=== PATIENT | female | born 1980 | race Caucasian/White ===

== ENCOUNTER 2017-12-22 14:22 | Outpatient (CLI) | payer OTHER, SELFPAY ==
[2017-12-22 15:11] VITALS: BMI 30.2
--- NOTE | 2017-12-22 15:24 | OB.TRI.NOTE ---
History of Present Illness Date of Service: 12/22/17 Was patient seen by the physician?: Yes Reason For Visit: SPOTTING Date of Service: 12/22/17 Final ADAM: 04/20/18 Gestational age: 23 Weeks and 0 Days History of Present Illness: 37yo @ 23wga with c/o bright red blood per vagina immediately following a bowel movement earlier today. She had placed a pad and had a quarter sized amount of blood on arrival. Denies cramping, abdominal or back pain, dysuria, urgency, hematuria, constipation, diarrhea. She reports minimal straining with bowel movement. She otherwise feels well. Previously had postcoital bleeding approximately 3 weeks ago. Relates last US on 12/05/17 was normal. Home Medications Medication Instructions Recorded Vitamins 1 tab PO DAILY 12/22/17 Progesterone 200 mg IM UD 12/22/17 Prometrium 200 mg PO BID 12/22/17 Allergies No Known Allergies Allergy (Verified 12/22/17 15:12) - Pertinent Past Medical History Pertinent Past Medical History: section x 1 2 prior - first trimester spontaneous abortions labs reviewed HBsAg neg RPR NR Rubella immune A NEG Physical Exam Vitals: vss General: Alert, Oriented x3, Cooperative, No apparent distress Abdomen: Soft, Non Tender, Non-Distended, Gravid, - - Uterus 23w size, SSE - cervix closed, scant red blood and small clot in vault; Extremities:: No edema Estimated gestational size: Appropriate for gestational size Presentation: Breech Cervix Dilation (cm): 0 Station: -3 Effacement (%): 0 NST - FHR Rate Baby A Baseline: 145 Variability:: Minimal Accelerations:: None Decelerations:: None NST Reactive:: Appropriate for gestational age Uterine Activity:: none Impression/Plan 37yo @ 23wga with second trimester spotting, FHR AGA -OSH records reviewed with pt and -Bedside US performed after initial exam TAUS: fetus breech, active, CITLALLI 10.1cm with posterior placenta and appears to have at least marginal previa; no retroplacental clot present. TVUS performed to r/o placenta previa: Cervix 42mm, no funneling with/without Valsalva, + partial placenta previa -Reviewed US and exam findings with patient and . Bleeding likely 2/2 Valsalva effect on partial previa. Reviewed dangers of previa and potential for resolution. I recommend keeping stool soft with hydration, stool softeners as needed; no heavy lifting > 10lb, no intercourse. Reviewed signs and symptoms requiring further evaluation and when to present to [facility]. Also discussed movement counts. -Will plan for repeat US at 28-32wga with growth scan at that time. -Patient and anxious to return home. I advised Rhogam given Rh negative status and known Rh positive. Patient agreeable to sending T&S today, will present to office on Sunday at 0830h for Rhogam. Patient is in agreement with plan and understands importance of receiving injection within 72 hours. Visit was approximately 20 minutes with > 50% of time spent in counseling and discussion not including ultrasound or record review. Code Visit Office Visits / Consults: [id number] OV L3 New Past Medical/Surgical History Allergies No Known Allergies Allergy (Verified 12/22/17 15:12) Home Medications Medication Instructions Recorded Vitamins 1 tab PO DAILY 12/22/17 Progesterone 200 mg IM UD 12/22/17 Prometrium 200 mg PO BID 12/22/17
--- NOTE | 2017-12-22 17:36 | OB.TRI.HP_ITS ---
History of Present Illness Date of Service: 12/22/17 Was patient seen by the physician?: Yes Reason For Visit: SPOTTING Date of Service: 12/22/17 Final ADAM: 04/20/18 Final ADAM Source: US <20 weeks Gestational age: 23 Weeks and 0 Days History of Present Illness: 37yo @ 23wga with c/o bright red blood per vagina immediately following a bowel movement earlier today. She had placed a pad and had a quarter sized amount of blood on arrival. Denies cramping, abdominal or back pain, dysuria, urgency, hematuria, constipation, diarrhea. She reports minimal straining with bowel movement. She otherwise feels well. Previously had postcoital bleeding approximately 3 weeks ago. Relates last US on 12/05/17 was normal. Home Medications Medication Instructions Recorded Vitamins 1 tab PO DAILY 12/22/17 Progesterone 200 mg IM UD 12/22/17 Prometrium 200 mg PO BID 12/22/17 Allergies No Known Allergies Allergy (Verified 12/22/17 15:12) - Pertinent Past Medical History Pertinent Past Medical History: - Pertinent Past Medical History Pertinent Past Medical History: section x 1 2 prior - first trimester spontaneous abortions labs reviewed HBsAg neg RPR NR Rubella immune A NEG Physical Exam Vitals: avss General: Alert, Oriented x3, Cooperative, No apparent distress Cardiovascular: Regular rate Lungs: Normal air movement Abdomen: Soft, Non Tender, Non-Distended, Gravid Extremities:: No edema Estimated gestational size: Appropriate for gestational size Presentation: Breech Cervix Dilation (cm): 0 Station: -3 Effacement (%): 0 NST - FHR Rate Baby A Baseline: 140 Variability:: Minimal Accelerations:: None Decelerations:: None NST Reactive:: Appropriate for gestational age Uterine Activity:: 0/10 Impression/Plan 37yo @ 23wga with second trimester spotting, FHR AGA -OSH records reviewed with pt and -Bedside US performed after initial exam TAUS: fetus breech, active, CITLALLI 10.1cm with posterior placenta and appears to have at least marginal previa; no retroplacental clot present. TVUS performed to r/o placenta previa: Cervix 42mm, no funneling with/without Valsalva, + partial placenta previa -Reviewed US and exam findings with patient and . Bleeding likely 2/2 Valsalva effect on partial previa. Reviewed dangers of previa and potential for resolution. I recommend keeping stool soft with hydration, stool softeners as needed; no heavy lifting > 10lb, no intercourse. Reviewed signs and symptoms requiring further evaluation and when to present to [facility]. Also discussed movement counts. -Will plan for repeat US at 28-32wga with growth scan at that time. -Patient and anxious to return home. I advised Rhogam given Rh negative status and known Rh positive. Patient agreeable to sending T&S today, will present to office on Sunday at 0830h for Rhogam. Patient is in agreement with plan and understands importance of receiving injection within 72 hours. Visit was approximately 20 minutes with > 50% of time spent in counseling and discussion not including ultrasound or record review. Code Visit Office Visits / Consults: [id number] OV L3 New
== END 2017-12-22 15:30 | disposition home or self-care (01) ==
LOC: WPOUT 14:34 → WP 14:35
PROVIDERS: Visit Provider Obstetrics & Gynecology
DX: O44.32 Partial placenta previa with hemorrhage, second trimester (principal); O26.852 Spotting complicating pregnancy, second trimester; O32.1XX0 Maternal care for breech presentation, not applicable or unspecified; O26.22 Pregnancy care for patient with recurrent pregnancy loss, second trimester; Z3A.23 23 weeks gestation of pregnancy
CPT/HCPCS: 36415; 59025; 59050; 76815; 86850; 86900; 99218; G0378

== ENCOUNTER → 2018-02-05 06:46 | Outpatient (CLI) | payer OTHER, SELFPAY ==
[2018-02-05 07:51] LABS: Glucose GTT-Gestation. Fasting 79 mg/dL (<105)
[2018-02-05 08:42] LABS: Glucose GTT-Gestational 1 Hr 175 mg/dL (<190)
[2018-02-05 10:01] LABS: Glucose GTT-Gestational 2 Hr 163 mg/dL (<165)
[2018-02-05 11:28] LABS: Glucose GTT-Gestational 3 Hr 69 L (<145)
== END ==
PROVIDERS: Family Provider Family Medicine; PCP Family Medicine; Visit Provider Obstetrics & Gynecology
DX: O24.912 Unspecified diabetes mellitus in pregnancy, second trimester (principal); Z3A.00 Weeks of gestation of pregnancy not specified
CPT/HCPCS: 36415; 82951; 82952

== ENCOUNTER 2018-04-14 06:50 | Inpatient (IN) | payer SELFPAY ==
[2018-04-13 22:42] VITALS: BMI 31.4
[2018-04-14] VITALS (20 sets, daily range): BP systolic 100–120; BP diastolic 63–79; PULSE 63–78; RESP 16–20; TEMP 36.2–36.9; O2SAT 96–100
[2018-04-14] MEDS: Lactated Ringers 1,000 ML 999 ML IV (07:00)
[2018-04-14 07:24] LABS: Absolute Neutrophil Count 4.7 X10^3/uL (2.0-7.7); Basophil# 0.02 X10^3/uL; Basophil% 0.3 % (0-1); Eosinophil# 0.04 X10^3/uL; Eosinophils% 0.6 % (0-5); Hematocrit 36.1 % (37-47); Hemoglobin 12.8 g/dl (12.0-15.0); Lymphocyte % 22.1 % (19-41); Mean Corp Hgb Conc 35.5 g/gl (32-36); Mean Corpuscular Hgb 35.9 pg (27.0-32.0); Mean Corpuscular Volume 101.1 fL (81-99); Mean Platelet Vol. 9.7 fl (6.2-12.0); Monocyte# 0.49 X10^3/uL; Monocyte% 7.2 % (0-10); Neutrophil # 4.73 X10^3/uL (2.7-7.7); Neutrophil % 69.5 % (47-70); Platelet Count 211 K/mm3 (150-450); RBC Distribution Width CV 13.3 % (11.6-14.6); RBC Distribution Width SD 47.2 fl (35.1-43.9); Red Blood Count 3.57 M/mm3 (4.2-5.4); White Blood Count 6.8 K/mm3 (4.4-11.0)
[2018-04-14 07:25] LABS: POSITIVE COUNT NO; POSITIVE DIFFERENTIAL NO; POSITIVE MORPHOLOGY NO
[2018-04-14 07:51] LABS: Prothrombin Time (Protime)PT. 12.8 SECONDS (11.7-14.9)
[2018-04-14 07:52] LABS: Partial Thromboplast Time 27.2 Seconds (24.1-36.2)
--- NOTE | 2018-04-14 07:54 | DCINST_ITS ---
Discharge Diet: No Restrictions Discharge Activity: Return to Normal Activity, May Not Drive, May not drive while taking narcotic pain medications., May Shower Return to work on:: 05/31/18 May shower in (days): 0 May resume sexual activity in: 6 weeks Call your doctor if your incision/area has: Continuous Slow Oozing, Sudden Increased Bleeding, Increased Pain/ Swelling, Increased Redness, Foul Smelling Discharge, Swelling at the incision site Call your doctor if you observe: Fever of 101 or Higher, Inability to urinate, Inability to have a bowel movement, Using more than one pad per hour, Shortness of breath, Chest pain, Calf discomfort, Uncontrolled pain Remove Dressing in (days):: 2 Cleanse incision/area with: Soap & Water Additional Instructions: If you experience any of the following, contact your healthcare provider. * Bleeding that soaks a pad every hour for 2 hours * Fever 100.4 or higher * Unrelieved incision or abdominal pain * Swelling, redness, discharge or bleeding from your incision or episiotomy site * Your incision begins to separate * Problems urinating (including inability to urinate or burning while urinating) . * Visual changes * Severe headache * Flu-like symptoms * Pain or redness in one of both of your breasts * Pain, warmth, tenderness or swelling in your legs, especially the calf area * Frequent nausea and vomiting * Symptoms of depression or anxiety If you experience any of the following, call 911 or go to the nearest Emergency Room. * Chest pain * Problems breathing * Seizure activity * Partial or complete paralysis of a body part, slurred speech, weakness or drooping of the face, or a sudden inability to walk or hold your balance Allergies/Adverse Reactions: Allergies No Known Allergies Allergy (Verified 04/13/18 22:44) Medications to take at Discharge Vitamins 1 tab PO BID 12/22/17 [place]-3 Fatty Acids [[place]-3] 1 capsule PO DAILY 04/13/18 Ibuprofen 600 mg PO 4X/DAY #30 tab 04/14/18 Oxycodone [Oxyir] 5 mg PO Q4H PRN PRN 7 Days #20 tab 04/14/18 The following prescriptions were given: Oxycodone [Oxyir] 5 mg PO Q4H PRN PRN 7 Days #20 tab PRN Reason: strong pain Ibuprofen 600 mg PO 4X/DAY #30 tab Follow-Up: Call to make an appointment with your doctor for an incision check in 1-2 weeks. You will also need a 6 week post- follow up appointment. Test results from this visit will be discussed in further detail at your follow- up appointment, if applicable. Please Follow Up With: Juan Jose Aguillon MD When: one to two weeks Primary Care Physician: Lukasz Muñoz MD [Primary Care Provider] - Proposed Discharge Date: 04/16/18
--- NOTE | 2018-04-14 07:54 | PCM.OPRPT ---
Problem List (1) Previous section complicating Status: Chronic Report of Operation Date of Procedure: 04/14/18 Pre-Operative Diagnosis: Previous section in labor with breech presentation Post-Operative Diagnosis: Same Surgery/Procedure Performed:: Repeat Low Transverse Section Description of Surgical Findings:: Live female in vertex presentation. Lower uterine segment extremely thin, ovaries, and fallopian tubes. Minimal pelvic/abdominal scarring. Baby weighed 7lb8oz. Apgars 8/9. rn house supervisor: Jonathan Rodriguez Type of Anesthesia:: Spinal Anesthesiologist: Perez Aguillon Special Medications: none Specimen's removed: none Drains: vanessa Estimated Blood Loss (mL): 600cc Fluids Replaced: 1500cc Description of Procedure: Gege presented with regular contractions. Cervix dilated and effaced. Counselled on indications, risks, and expectations of repeat section. All questions answered. She was taken to the operating room with IV running. She was given two grams of Ancef intravenously prior to the procedure. Spinal anesthesia was introduced without complication. A vanessa catheter was then placed. She was then prepped and draped in the supine position with a leftward tile. Once anesthesia was deemed adequate a Pfannensteil skin incision was made over the previous scar. The underlying subcutaneous tissue was dissected down to the level of fascia using blunt and sharp dissection. The fascia was then incised in the midline and this incision was extended bilaterally using the Reyes scissors. The upper portion of the fascial incision was then grasped with two Alvaro clamps, elevated and the rectus muscles dissected off with blunt and sharp dissection. In a similar fashion the rectus muscles were dissected off the lower fascial defect. The rectus muscles were then in the midline the peritoneum identified and entered bluntly. The peritoneal defect was then extended using sharp and blunt dissection. A bladder blade was placed. The vesicouterine peritoneum was then identified, entered sharply and a bladder flap created. The lower uterine segment was then incised in a transverse fashion. Once the cavity was entered the uterine defect was enlarged using blunt lateral and superior traction. The baby's head was then delivered followed by the body. Delayed cord clamping was employed. The cord was clamped and cut. The baby was then handed off to the waiting nursing staff for evaluation. The placenta was then delivered manually, the uterus exteriorized, and cleared of all clots and membranes. The uterine incision was then closed in two layers with #1 Vicryl suture. Hemostasis was excellent. The posterior cul de sac and gutters were cleared of all clot and fluid. The uterus was returned to the abdomen. The uterine incision was reinspected and found to be hemostatic. The peritoneum was closed with a running stitch of 2-0 vicryl. The rectus muscles reapproximated with 0-Vicryl. The fascia was closed with a running stitch of #1 Stratofix suture. The subcutaneous tissue was closed with 2-0 Vicryl. The skin was closed with a subcuticular stitch of 4-0 Monocryl. Sponge, lap, needle, and instrument counts were correct. She was taken to the recovery room in stable condition. Grafts/Implants Used: none - Complications none - Admit VTE Documentation VTE Present on Admission: No VTE Mechan Device Prophylaxis: SCD's VTE Pharm Prophylaxis ordered?: No
[2018-04-14] MEDS: Lactated Ringers 1,000 ML 150 ML IV ×2 (08:00→17:02)
[2018-04-14] MEDS: Sodium Citrate/Citric Acid 30 ML UDC PO (08:55)
[2018-04-14] MEDS: Oxytocin 30 units/NS 500 ml 30 UNITS/500 ML IV.SOLN 167 UNITS IV (09:27)
[2018-04-14] MEDS: Ketorolac 30 MG/ML Syringe IV ×2 (09:45→17:06)
[2018-04-14] MEDS: Lactated Ringers 1,000 ML 100 ML IV (10:15)
--- NOTE | 2018-04-14 10:23 | PCM.HP.OB ---
- Problem List (1) Previous section complicating Status: Chronic History Date of Admission: 04/14/18 Final ADAM: 04/20/18 Final ADAM Source: US <20 weeks Gestational age: 39 Weeks and 1 Days History of this : This is a 37 year-old, G [], P [], at weeks gestational age. Medical History: Medical History (Last Updated 12/22/17 @ 16:55 by Nichol Greene MD) Recurrent loss N96 Surgical History: Surgical History (Last Updated 12/22/17 @ 16:56 by Nichol Greene MD) Previous section Z98.891 2012 - arrest of descent Allergies No Known Allergies Allergy (Verified 04/13/18 22:44) Home Medications: Home Medications Vitamins 1 tab PO BID 12/22/17 [place]-3 Fatty Acids [[place]-3] 1 capsule PO DAILY 04/13/18 Ibuprofen 600 mg PO 4X/DAY #30 tab 04/14/18 Oxycodone [Oxyir] 5 mg PO Q4H PRN PRN 7 Days #20 tab 04/14/18 Smoking Status: Never smoker Alcohol: None Number of Fetus(es): 1 Heart Tracins TOCO Analysis: contractions q 1-3 minutes History Past Pregnancies: Past Pregnancies Delivery Date Name GA/Weeks Outcome Route Weight Gender Labor Length Anesthesia Delivery Location Provider FOB Labs: no abnormals, rH negative Expected Delivery Method: Repeat Section Number of Visits: 10 Review of Systems Constitutional: Denies: Fever Cardiovascular: Denies: Chest Pain, Chest Tightness, Edema Respiratory: Denies: Cough, Shortness of Breath Gastrointestinal: Denies: Abdominal Pain Genitourinary: Denies: Dysuria, Hematuria Gynecological: Denies: Vaginal bleeding, Vaginal discharge Physical Exam General: Alert, Oriented x3, Cooperative, No apparent distress Cardiovascular: Regular rate, Regular Rhythm Lungs: Clear to auscultation, Normal air movement Abdomen: Soft, Non Tender, Non-Distended, Gravid, Appropriate for Gestational Age Extremities:: No edema Neurological: Neuro grossly 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 Admitted for repeat section. Poor candidate for . Uncomplicated .
--- NOTE | 2018-04-14 10:28 | HP.PCM_ITS ---
- Problem List (1) Previous section complicating Status: Chronic History Date of Admission: 04/14/18 Final ADAM: 04/20/18 Final ADAM Source: US <20 weeks Gestational age: 39 Weeks and 1 Days History of this : This is a 37 year-old, G [], P [], at weeks gestational age. Medical History: Medical History (Last Updated 12/22/17 @ 16:55 by Nichol Greene MD) Recurrent loss N96 Surgical History: Surgical History (Last Updated 12/22/17 @ 16:56 by Nichol Greene MD) Previous section Z98.891 2012 - arrest of descent Allergies No Known Allergies Allergy (Verified 04/13/18 22:44) Home Medications: Home Medications Vitamins 1 tab PO BID 12/22/17 [place]-3 Fatty Acids [[place]-3] 1 capsule PO DAILY 04/13/18 Ibuprofen 600 mg PO 4X/DAY #30 tab 04/14/18 Oxycodone [Oxyir] 5 mg PO Q4H PRN PRN 7 Days #20 tab 04/14/18 Smoking Status: Never smoker Alcohol: None Number of Fetus(es): 1 Heart Tracins TOCO Analysis: contractions q 1-3 minutes History Past Pregnancies: Past Pregnancies Delivery Date Name GA/Weeks Outcome Route Weight Gender Labor Length Anesthesia Delivery Location Provider FOB Labs: no abnormals, rH negative Expected Delivery Method: Repeat Section Number of Visits: 10 Review of Systems Constitutional: Denies: Fever Cardiovascular: Denies: Chest Pain, Chest Tightness, Edema Respiratory: Denies: Cough, Shortness of Breath Gastrointestinal: Denies: Abdominal Pain Genitourinary: Denies: Dysuria, Hematuria Gynecological: Denies: Vaginal bleeding, Vaginal discharge Physical Exam General: Alert, Oriented x3, Cooperative, No apparent distress Cardiovascular: Regular rate, Regular Rhythm Lungs: Clear to auscultation, Normal air movement Abdomen: Soft, Non Tender, Non-Distended, Gravid, Appropriate for Gestational Age Extremities:: No edema Neurological: Neuro grossly intact 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 Admitted for repeat section. Poor candidate for . Uncomplicated .
--- NOTE | 2018-04-14 10:28 | PCM.OB.CSR ---
- Problem List (1) Previous section complicating Status: Chronic Delivery Classification: LORI Final ADAM: 04/20/18 Gestational age: 39 Weeks and 1 Days Indications for : - - Previous section poor candidate Description of Procedure: Uncomplicated repeat LTCS. Lower uterine segment extremely thin. Normal ovaries and fallopian tubes. Delivery of a live female weighing 7lb8oz. Apgars 8/9. Amniotic Membrane Rupture Type: Artificial Amniotic Fluid Description: Clear Placenta Disposition: [facility] Specimen(s) sent to pathology: cord blood Drain: Snowden to straight drain Fluids Replaced: 1500cc Cord Entanglement: None Cord Vessel Description: 3 Vessels Esitmated Blood Loss (ml): 600cc Infant Gender: Female (1 minute): 8 (5 minute): 9 Pre-op Antibiotic Given: Ancef 2 grams IV x1 Pt instructed on risks of surgery: Bleeding, Anesthesia Risks, Infection, Need for Future C-Sections, Injury to surrounding structure(s) including bowel and bladder Complications: None - Admit VTE Documentation VTE Present on Admission: No VTE Mechan Device Prophylaxis: SCD's VTE Pharm Prophylaxis ordered?: No
[2018-04-14] MEDS: Cefazolin 1 GM/50 ML BAG IV (17:02)
[2018-04-14] MEDS: Prenatal Vits Tablet 1 TABLET PO (17:05)
[2018-04-14] MEDS: 0.9% Saline Lock 10 ML Syringe IV (17:07)
--- NOTE | 2018-04-14 18:28 | NURSING ---
NOTE: Admission assessment initially entered by this RN on 04/09/2018 on pt pre in chart [id number]. re- entered on this chart today.
[2018-04-15] VITALS (8 sets, daily range): BP systolic 96–106; BP diastolic 61–71; PULSE 62–74; RESP 18–20; TEMP 36.3–36.9; O2SAT 96–100
[2018-04-15] MEDS: Ketorolac 30 MG/ML Syringe IV ×5 (00:44→23:34)
[2018-04-15] MEDS: Cefazolin 1 GM/50 ML BAG IV (00:44)
[2018-04-15] MEDS: Lactated Ringers 1,000 ML 150 ML IV (04:03)
[2018-04-15 06:36] LABS: Hematocrit 33.5 % (37-47); Hemoglobin 11.5 g/dl (12.0-15.0); Mean Corp Hgb Conc 34.3 g/gl (32-36); Mean Corpuscular Hgb 35.1 pg (27.0-32.0); Mean Corpuscular Volume 102.1 fL (81-99); Mean Platelet Vol. 9.4 fl (6.2-12.0); Platelet Count 196 K/mm3 (150-450); RBC Distribution Width CV 13.6 % (11.6-14.6); RBC Distribution Width SD 50.4 fl (35.1-43.9); Red Blood Count 3.28 M/mm3 (4.2-5.4); White Blood Count 9.1 K/mm3 (4.4-11.0)
[2018-04-15 06:44] LABS: Scan Indicated on CBC? Y/N NO
--- NOTE | 2018-04-15 07:44 | PCM.PN.OB ---
Subjective: Feels well. Breast feeding. Pain well controlled. Objective: Afeb VSS Urine output appropriate. Hgb stable - Physical Exam General: Alert, Oriented x3, Cooperative, No apparent distress Lungs: Clear to auscultation, Normal air movement Cardiovascular: Regular rate, Regular Rhythm Abdomen: Soft, Non Tender, Non-Distended, - - Fundus firm. Incision dressing dry. Extremities: No edema Skin: No rashes Neurological: Neuro grossly intact Psych/Mental Status: Normal Affect Comment: Lochia appropriate Vital Signs Temp Pulse Resp BP Pulse Ox 97.3 F L 66 18 97/64 98 04/15/18 03:30 04/15/18 06:00 04/15/18 06:00 04/15/18 03:30 04/15/18 06:00 Oxygen Delivery Method Room Air Weight: 171 lb 15.369 oz Body Mass Index (BMI) 31.4 Intake and Output for Last 24 Hours 04/13/18 04/14/18 04/15/18 23:59 23:59 23:59 Intake Total 4738 / 4738 934 / 934 Output Total 200 / 200 1575 / 1575 3750 / 3750 Balance -200 / -200 3163 / 3163 -2816 / -2816 Laboratory Tests Past 24 Hrs 04/14/18 04/14/18 04/14/18 07:05 07:05 07:30 WBC RBC Hgb Hct MCV MCH MCHC RDW RDW Differential Plt Count MPV PT 12.8 INR 1.0 APTT 27.2 Blood Type A NEGATIVE Antibody Screen TNP NEGATIVE Screen Baby's Blood Type Baby's JANI 04/14/18 04/15/18 11:00 06:25 WBC 9.1 RBC 3.28 L Hgb 11.5 L Hct 33.5 L MCV 102.1 H MCH 35.1 H MCHC 34.3 RDW 13.6 RDW Differential 50.4 H Plt Count 196 MPV 9.4 PT INR APTT Blood Type Antibody Screen Screen NEGATIVE Baby's Blood Type A POSITIVE Baby's JANI NEGATIVE Medical Necessity - Tobacco Use Smoking Status: Never smoker Assessment/Plan Doing well on POD#1. Continue routine PO care. Remove vanessa later this morning.
[2018-04-15] MEDS: Senna/Docusate Sodium 1 Tablet PO (08:38)
[2018-04-15] MEDS: Prenatal Vits Tablet 1 TABLET PO ×2 (08:39→18:24)
[2018-04-15] MEDS: 0.9% Saline Lock 10 ML Syringe IV ×3 (12:49→23:34)
[2018-04-16 02:00] VITALS: BP 102/72; PULSE 75; RESP 18; TEMP 37; O2SAT 100
[2018-04-16] MEDS: 0.9% Saline Lock 10 ML Syringe IV (06:10)
[2018-04-16] MEDS: Ketorolac 30 MG/ML Syringe IV (06:10)
[2018-04-16 08:00] VITALS: BP 110/78; PULSE 68; RESP 16; TEMP 36.8; O2SAT 99
[2018-04-16] MEDS: Acetaminophen 500 MG Tablet 1000 MG PO (08:03)
[2018-04-16] MEDS: Senna/Docusate Sodium 1 Tablet PO (08:03)
--- NOTE | 2018-04-16 08:39 | PCM.PN.OB ---
Subjective: No complaints. pain well controlled. Bleeding light. Objective: Afeb VSS - Physical Exam General: Alert, Oriented x3, Cooperative, No apparent distress Lungs: Clear to auscultation, Normal air movement Cardiovascular: Regular rate, Regular Rhythm Abdomen: Soft, Non Tender, Non-Distended, - - Incision dressing dry Skin: No rashes Neurological: Neuro grossly intact Psych/Mental Status: Normal Affect Comment: Lochia light Vital Signs Temp Pulse Resp BP Pulse Ox 98.6 F 75 18 102/72 100 04/16/18 02:00 04/16/18 02:00 04/16/18 02:00 04/16/18 02:00 04/16/18 02:00 Oxygen Delivery Method Room Air Weight: 171 lb 15.369 oz Body Mass Index (BMI) 31.4 Intake and Output for Last 24 Hours 04/14/04/15/04/16/18 23:59 23:59 23:59 Intake Total 4738 / 4738 1973 / 1973 Output Total 1575 / 1575 5550 / 5550 Balance 3163 / 3163 -3576 / -3576 Medical Necessity - Tobacco Use Smoking Status: Never smoker Assessment/Plan Doing well on POD#2. Cleared for discharge home today. Home going instructions and warnings given.
--- NOTE | 2018-04-16 08:43 | DS.PCM_ITS ---
Discharge Date and Diagnosis Date of Admission: 04/14/18 Date of Discharge: 04/16/18 - Primary Discharge Diagnosis S/P repeat C/S - Secondary Discharge Diagnosis Chronic Problems (Last Updated 12/22/17 @ 16:55 by Nichol Greene MD) Previous section complicating (Chronic) Hospital Course and Treatment Operations: - - Repeat LTCS Summary of Care Provided: The patient is a 37 year old F [admitted in labor with history of previous C/S. Repeat LTCS performed without complication. Post operative course unremarkable. Discharged home on POD#2.] Discharge Diet: No Restrictions Discharge Activity: Return to Normal Activity, May Not Drive, May not drive while taking narcotic pain medications., May Shower Return to work on:: 05/31/18 May shower in (days): 0 May resume sexual activity in: 6 weeks Call your doctor if your incision/area has: Continuous Slow Oozing, Sudden Increased Bleeding, Increased Pain/ Swelling, Increased Redness, Foul Smelling Discharge, Swelling at the incision site Call your doctor if you observe: Fever of 101 or Higher, Inability to urinate, Inability to have a bowel movement, Using more than one pad per hour, Shortness of breath, Chest pain, Calf discomfort, Uncontrolled pain Remove Dressing in (days):: 2 Cleanse incision/area with: Soap & Water Home Medications: Medications to take at Discharge Vitamins 1 tab PO BID 12/22/17 [place]-3 Fatty Acids [[place]-3] 1 capsule PO DAILY 04/13/18 Ibuprofen 600 mg PO 4X/DAY #30 tab 04/14/18 Oxycodone [Oxyir] 5 mg PO Q4H PRN PRN 7 Days #20 tab 04/14/18 Following Prescrptions Were Given to Patient: Oxycodone [Oxyir] 5 mg PO Q4H PRN PRN 7 Days #20 tab PRN Reason: strong pain Ibuprofen 600 mg PO 4X/DAY #30 tab Primary Care Physician: Lukasz Muñoz MD [Primary Care Provider] - Please Follow Up With: Juan Jose Aguillon MD When: one to two weeks Disposition: Home Minutes spent on discharge:: 15 Patient Condition:: Good Medical Necessity - Tobacco Use Smoking Status: Never smoker Meaningful Use Info Meaningful Use Diagnoses (Choose all that apply): None applicable
[2018-04-16 11:07] VITALS: BP 108/68; PULSE 64; RESP 16; TEMP 36.6
--- NOTE | 2018-04-20 13:55 | NURSING ---
Follow up phone call attempted left message
== END 2018-04-16 11:10 | disposition home or self-care (01) | DRG 765 ==
LOC: WPOUT 07:06
PROVIDERS: Admitting Provider Obstetrics & Gynecology; Family Provider Family Medicine; PCP Family Medicine; Visit Provider Obstetrics & Gynecology
DX: O34.211 Maternal care for low transverse scar from previous cesarean delivery (principal); O26.23 Pregnancy care for patient with recurrent pregnancy loss, third trimester; O09.523 Supervision of elderly multigravida, third trimester; Z3A.39 39 weeks gestation of pregnancy; Z37.0 Single live birth
CPT/HCPCS: 59025; 59050; 85025; 85027; 85461; 85610; 85730; 86850; 86900; 90384; 99218; J7120; A4216; G0378; J2790